=== PATIENT | male | born 1985 | race Caucasian/White ===

== ENCOUNTER 2018-10-03 14:33 | Emergency (ER) | payer OTHER ==
[~2018-10-03] VITALS: Ht 180.3 cm; Wt 93.2 kg
[2018-10-03] MEDS ORDERED: MORPHINE 4 MG/ML 1ML VIAL/SYRINGE (J2270) IV ONE (15:15)
[2018-10-03] MEDS ORDERED: ONDANSETRON 4MG/2ML VIAL (J2405) IV ONE (15:15)
--- NOTE | 2018-10-03 15:32 | REP ---
LEFT ELBOW COMPLETE: 10/03/2018. Comparison: No prior study. Clinical history: Trauma, patient fell. Findings: The distal humerus is completely dislocated anteriorly from the olecranon and radial head. No visible fracture. Electronically Signed by Navi Millan MD 10/03/2018 03:24 P
[2018-10-03] MEDS ORDERED: NS 1,000 ML IV SCH (15:37)
[2018-10-03] MEDS ORDERED: fentaNYL 100 MCG/2 ML INJECTION (J3010) IV ONE (16:00)
[2018-10-03] MEDS ORDERED: PROPOFOL 200 MG/20 ML VIAL IV ONE ×2 (16:00→16:30)
[2018-10-03] MEDS ORDERED: CIPRHCOTIC OTIC (17:10)
[2018-10-03] MEDS ORDERED: NORCOTAB PO (17:10)
[2018-10-03 17:46] VITALS: BP 131/67
[2018-10-03] MEDS ORDERED: NORCO 5/325MG TABLET (BULK FOR ED) PO ONE (18:45)
--- NOTE | 2018-10-03 20:53 | HPE ---
DATE OF ADMISSION: 10/03/2018 CHIEF COMPLAINT: Left elbow dislocation. HISTORY OF PRESENT ILLNESS: This 33-year-old man was snowboarding today at [facility]. He sustained a fall onto his left elbow. He sustained a closed left elbow dislocation. He has not had any previous injuries to his left upper extremity. He is left hand dominant. He does complain about some decreased sensation of the fingers and the entire hand, but nothing on the right side. The pain is primary located in the elbow. Does not radiate anywhere. He does not complain about pain in the shoulder or wrist. The pain is moderate in nature. PAST MEDICAL HISTORY: Nil. MEDICATIONS: None. ALLERGIES: No known drug allergies. SURGICAL HISTORY: [place] teeth removal. Varicocele surgery. 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 Nonsmoker. REVIEW OF SYSTEMS: Negative for fever, chills, night sweats, weight loss or other concerning features or pain anywhere else. PHYSICAL EXAMINATION: VITAL SIGNS: 122/63, pulse rate 73. 96% 2 liters nasal prongs with a respiratory rate of 15. He is alert and oriented times three. He converses appropriately. Station is normal. Affect is positive and pleasant. He is in a moderate amount of discomfort. Inspection of left upper extremity reveals an obvious deformity to the left elbow. Nothing on the right side. Appears to be an elbow dislocation. This is a closed injury. Palpation revealed pain at the elbow, but not at the clavicle, right upper extremity, left shoulder or left wrist. He had slightly diminished sensation throughout the hand, but he could definitely feel the median radial ulnar nerve distributions. He had good motor function of the same, but slightly diminished at the ulnar nerve, rated 4+/5. Hand was warm was well perfused. Strong radial pulse. Capillary refill under 3 seconds. Radiographs were reviewed. Four views of the left elbow. This shows a typical posterolateral elbow dislocation on the left side. There is no associated obvious fractures of the coronary radial head or any other structures. There is also left wrist x-rays. I see no obvious fracture or other abnormalities there. ASSESSMENT AND PLAN: This 33-year-old man with a closed neurovascular intact left elbow dislocation. I have counseled as the pro's and con's, risks and benefits of going through a closed reduction. I had him sign a consent form for this. I discussed the possibility of stiffness, fracture, repeat instability, need for surgery and pain in his elbow. He would like to go ahead and he did sign the consent form for this. We performed a closed reduction under conscious sedation in the emergency department. I placed him into a 90 degree [place] back slab and a sling. I advised him, as well as the emergency doctor, arranged followup with myself or another provider in 3 days for repeat radiographs and clinical review. Procedure note: Under conscious sedation, using longitudinal traction with the forearm supinated, I performed a close reduction of his left elbow. This slid in quite easily. There are no clicks or clunks, it just slid back into joint. I tested, he had full range of motion 0 to 135 degrees without evidence of instability. This was achieved both in supination and pronation. I took fluoroscopy views with the mini-C arm throughout the procedure. I took it at the end to confirm on AP and lateral radiographs the joint was congruently reduced. There is no gaping on the medial or lateral side. No evidence of fracture. I stressed the lateral side with the arm in the supination. There definitely appeared to be some widening of the lateral joint space of the radiocapitellar joint consistent with LUCL injury, on the medial side with the forearm pronation, solid. Once the patient was woken up from general anesthetic, the plaster had set, I checked their neurovascular status. He appeared to have a warm well perfused hand and strong radial pulse. He said that it did feel better in terms of the ulnar nerve sensation and his strength appeared to be better as well. I had rated it as about 4+/5 still, but definitely stronger than prereduction. There are no complications of the procedure and the patient tolerated it well. HANNAH
--- NOTE | 2018-10-04 06:51 | REP ---
LEFT WRIST COMPLETE: 10/03/2018. Clinical history: Trauma, pain. Findings: Four views of the wrist were provided. Some minor soft tissue swelling over the dorsal aspect of the wrist. Distal radius and ulna without fracture. Carpal bones and joint spaces grossly intact. Metacarpals, MCP joints and phalanges show no acute finding. There is an old healed and remodeled distal fifth metatarsal fracture. No new or acute fracture. Impression: 1. Old post-traumatic changes but no evidence of any definite new or acute fracture, avulsion or other significant bony finding. Electronically Signed by Navi Millan MD 10/04/2018 09:48 A
--- NOTE | 2018-10-04 08:12 | REP ---
LEFT ELBOW COMPLETE: 10/03/2018. Clinical history: Closed reduction. Comparison: Pre-procedure x-rays earlier this date showing complete dislocation of the elbow. Findings: Six views from C-arm fluoroscopy demonstrate anatomic reduction of the elbow as seen on all six images. No visible avulsion or fracture. Fluoroscopy time: 10 seconds. Electronically Signed by Navi Millan MD 10/04/2018 09:55 A
== END 2018-10-03 17:52 | disposition home or self-care (01) ==
LOC: M ED 14:33
DX: S53.125A Posterior dislocation of left ulnohumeral joint, initial encounter (principal); V00.311A Fall from snowboard, initial encounter; Y92.838 Other recreation area as the place of occurrence of the external cause
CPT/HCPCS: 24600; 73080; 73110; 93041; 94760; 96374; 96375; 99156; 99157; 99291; J2270; J2405; J3010

== ENCOUNTER 2022-05-05 17:13 | Emergency (ER) | payer OTHER ==
[~2022-05-05] VITALS: Ht 180.3 cm; Wt 88.5 kg
[~2022-05-05 17:13] MED LIST: CIPRHCOTIC OTIC; HYDR-3715 PO
[2022-05-05 17:15] VITALS: BP 113/69
[2022-05-05] MEDS ORDERED: CEPH500C PO (17:31)
[2022-05-05] MEDS ORDERED: IBUPROFEN 800 MG TAB PO ONE (17:45)
[2022-05-05 18:24] LABS: RSV AMPLIFICATION NEGATIVE (NEGATIVE)
== END 2022-05-05 19:01 | disposition home or self-care (01) ==
LOC: M ED 17:13
DX: U07.1 COVID-19 (principal)